=== PATIENT | female | born 1950 | race Caucasian/White ===

== ENCOUNTER 2017-09-23 08:00 | Outpatient (CLI) | payer MEDICARE, OTHER | END 2017-09-23 08:01 | disposition home or self-care (01) | LOC: BICMAMMO 08:00 | PROVIDERS: ATTEND Specialist | DX: Z13.820 Encounter for screening for osteoporosis (principal); M85.851 Other specified disorders of bone density and structure, right thigh; M85.852 Other specified disorders of bone density and structure, left thigh | CPT/HCPCS: 77080 ==

== ENCOUNTER 2017-09-23 15:20 | Outpatient (CLI) | payer MEDICARE, OTHER | END 2017-09-23 15:21 | disposition home or self-care (01) | LOC: BICMAMMO 15:20 | PROVIDERS: ATTEND Specialist | DX: Z12.31 Encounter for screening mammogram for malignant neoplasm of breast (principal); R92.1 Mammographic calcification found on diagnostic imaging of breast | CPT/HCPCS: 77063; G0202; 77067 ==

== ENCOUNTER 2018-06-02 10:00 | Inpatient (IN) | payer MEDICARE, OTHER ==
[2018-06-02 10:08] VITALS: BMI 30.7
[2018-06-04] MEDS ORDERED: Sodium Chloride 0.9% 100 ML ONE (05:56)
[2018-06-04] MEDS ORDERED: CEFAZOLIN/Water 2 GM/20 ML SYRINGE ONE (05:56)
[2018-06-04] MEDS ORDERED: Vancomycin HCl 1.5 GM in Sodium Chloride 0.9% 250 ML 300 ML IVPB SCH ×3 (06:00→18:00)
[2018-06-04] MEDS ORDERED: Fentanyl 100 MCG/2 ML VIAL ONE ×2 (06:39→11:23)
[2018-06-04] MEDS ORDERED: Midazolam HCl 2 mg/2 ml Vial ONE (06:39)
[2018-06-04] MEDS ORDERED: Levofloxacin 500 mg/D5W 100 ml Premix Bag ONE (07:01)
[2018-06-04] MEDS ORDERED: Promethazine HCl 25 MG/ML VIAL IM PRN (07:05)
[2018-06-04] MEDS ORDERED: Ropivacaine HCl/PF 1,100 MG in Sodium Chloride 0.9% 440 ML NERVE BLCK SCH (07:05)
[2018-06-04] MEDS ORDERED: traMADol HCl 50 MG TAB PO PRN ×4 (07:05→12:44)
[2018-06-04] MEDS ORDERED: Zolpidem Tartrate 5 MG TAB PO PRN (07:05)
[2018-06-04] MEDS ORDERED: Ondansetron HCl/PF 4 MG/2 ML Vial IVP PRN (07:05)
[2018-06-04] MEDS ORDERED: HYDROcodone/Acetaminophen 10/325 mg Tablet PO PRN ×3 (07:05→12:44)
[2018-06-04] MEDS ORDERED: Fentanyl 100 MCG/2 ML VIAL IV PRN (07:06)
--- NOTE | 2018-06-04 07:23 | HP ---
HISTORY OF PRESENT ILLNESS: Ms. Serrato is a 67-year-old female, soon to be 68, who presents with lef t shoulder pain described as 10/10. She has elevation of 40 degrees, external rotation of 10. The p atient has had a longstanding shoulder pain that has gone on for several years. She has undergone th erapy and injections and not desired surgery. She had an injury about 3 months ago which kind of com pleted the tear and she lost function of her left arm. She has a high riding humerus. The patient's desired surgical intervention. I discussed with her the risks and benefits. PAST MEDICAL HISTORY: UTI, restless leg, high cholesterol, chronic back depression. PAST SURGICAL HISTORY: Appendectomy, tubal ligation, hysterectomy, gallbladder, hemorrhoidectomy, ba ck surgery x5, laminectomy. MEDICATIONS: Atorvastatin, fluoxetine, pramipexole, Bihel, tizanidine, zolpidem. ALLERGIES: ASPIRIN. SOCIAL HISTORY: The patient is . Denies tobacco, occasional alcohol and denies drug use. Sh e has smoked in the past, quit in 1985. PHYSICAL EXAMINATION: GENERAL: Oriented female in no acute distress. HEENT: Normocephalic, atraumatic. Extraocular muscles intact. HEART: Regular rate. ABDOMEN: Soft, nontender, nondistended. EXTREMITIES: The patient's left upper extremity shows elevation of 40, external rotation of 10, ext remity strength 3/5, subscapularis 4/5 supraspinatus 3/5. She has a positive Oliva and Meggan's, haylee rovascularly intact, 2+ radial pulse. No wounds. A previous MRI showed a full thickness retracted tear of the infraspinatus to the supraspinatus with atrophy and also tearing of the strain of the teres with a glenohumeral joint effusion. IMPRESSION: Rotator cuff tear with atrophy irreparable. PLAN: The patient will be taken to the OR for a left reverse shoulder arthroplasty, biceps tenodesis . I discussed with the patient both the risks and benefits of surgery. I discussed with her also th e potential for a superior capsular reconstruction as an adjunct procedure and she desired definitive reverse. I discussed risks and benefits of reverse to include the longevity of implant, failure, lo ng-term failure, need for further surgeries, damage to vital structures or tendons, loss of life or l imb. The patient and family understand the risks and benefits and elected to proceed. The patient w ill receive vancomycin and Ancef and TXA.
[2018-06-04] MEDS ORDERED: Ropivacaine 0.5% HCl/PF (150 MG/30 ML VIAL) ONE ×2 (07:24→10:46)
[2018-06-04] MEDS ORDERED: Tranexamic Acid 1,000 MG in Sodium Chloride 0.9% 100 ML IVPB SCH (09:30)
--- NOTE | 2018-06-04 09:41 | OP ---
DATE OF PROCEDURE: 06/04/2018 PREOPERATIVE DIAGNOSIS: Left supraspinatus, infraspinatus full thickness tear of the traction irrepa rable rotator cuff tear. POSTOPERATIVE DIAGNOSIS: Left supraspinatus, infraspinatus full thickness tear of the traction irrep arable rotator cuff tear with biceps tendonopathy. PROCEDURE PERFORMED: 1. Left reverse total shoulder arthroplasty. 2. Biceps tenodesis. STAFF: Javier Maxwell M.D. WINDSCREEN FITTER: Aron Wu PA-C. ANESTHESIA: Vo. The patient received a general endotracheal intubation with interscalene block. ESTIMATED BLOOD LOSS: 150 mL. TOURNIQUET TIME: None. IMPLANTS: A Tornier 25 mm baseplate, a 32 superior, a 23 inferior, 32 anterior and 18 posterior scre ws, 36 mm centered sphere, 5B Flex stem, 0 offset tray, 6 mm poly. COMPLICATIONS: None. HISTORY OF PRESENT ILLNESS: Ms. Serrato is a 67-year-old female who presented with left shoulder pain for a full thickness rotator cuff tear. She had MRI evidence of supraspinatus infraspinatus atrophy with retraction of the glenoid. I did not feel that the patient would be a good candidate for a rot ator cuff repair. I discussed with her superior capsular reconstruction. The patient elected for th e reverse shoulder arthroplasty and biceps tenodesis. She understood the risks and benefits of the p rocedure to include pain, scar, bleeding, infection, damage to vital structures, decreased range of m otion or strength, continued pain, need for hardware revision or removal, loss of life or limb. The patient understood the risks and benefits and elected to proceed. PROCEDURE NOTE: Timeout was performed designating the patient's left upper extremity as the operativ e site based on site, consents and markings. After completion of timeout, the patient's left upper e xtremity was prepped and draped in sterile fashion. The patient had been placed in a beach chair pos ition. We made an incision in the deltopectoral down through skin through fat. I developed a plane which was right over the conjoint, looked in the fat, but I could not find a good vein. After develo ping the interval, I came down, found the patient's subscapularis, performed a subscapularis release. I found with the patient's biceps. After doing and inferior release and exposing the head, we disl ocated the head out, noticing that there was no supraspinatus infraspinatus left. We cut the biceps and that helped us with our dislocation. We cut the humeral head based articular cartilage. After this, we broached up to a size 5B stem. We placed it. I did not like the distance, so I cut 2 more mm off the entire head and placed a 4B, placed our trough. We then began our glenoid at 360 degree r elease soft tissue and bluntly dissected inferiorly, took down the capsule to ensure that we had teresita norman the biceps to expose the whole glenoid. After being happy with exposure of the glenoid we placed our [address] We drilled our center hole. We then reamed, medialized maybe a millimete r or 2 more than I would like, but I liked the overall position of our center position. We then hemant gary up peripherally and placed our baseplate, placed our anterior and posterior screws 32 and 18 resp ectively, placed a superior 32 and inferior 23. Had good overall firm fixation of this glenoid after completion of this. We then placed our standard baseplate, centered glenosphere, a [address], had good firm fixation. We moved back to the humerus, we placed finally a 5B, reduced it, had the low offset tray in about the 6 o'clock position to help with more lateralization, it was slightl y posterior on the humerus as far as translation in comparison to normal, but overall I liked the red uction. She was easily reduced and dislocated but her conjoint was firm. She had good range of tesha on. She had no signs of dislocation. I therefore elected to finalize those implants, removed all th e implants, filled 2 holes for #5 Ethibond, passed this down through the loop of the #5 Ethibond. We then impacted our implant and reduced it. We then used a #5 to do a W stitch, extended W stitch to close the subscapularis through the subscapularis. The remnant tissue posteriorly to tenodese the b iceps with #2 Vicryl with 3 [id number] stitches. We then washed. We closed the deltopectoral i nterval subcu and skin with 0, 2-0 and wilfredo. The patient will be admitted for pain control. She will be followed in house. The patient will be discharged potentially tomorrow if her pain is contro lled.
[2018-06-04] MEDS ORDERED: Ropivacaine 0.2% HCl/PF (40 MG/20 ML VIAL) ONE (10:46)
--- NOTE | 2018-06-04 10:53 | RAD ---
2 VIEWS LEFT SHOULDER: Date: 06/04/18 INDICATION: Left shoulder replacement. COMPARISON: None. FINDINGS: There is a reverse left total shoulder replacement demonstrated. The prosthesis projects in the expec joss position. Surgical wilfredo overlie the anterolateral aspect of the left shoulder joint. Visualize d left lung is clear. No acute fracture is evident. IMPRESSION: Left total shoulder replacement without radiographic evidence of complication. POS: [facility]
[2018-06-04] MEDS ORDERED: PHENYLEPHRINE-NS 100 MCG/ML 10 ML SYRINGE ONE (10:56)
[2018-06-04] MEDS ORDERED: Ondansetron HCl/PF 4 MG/2 ML Vial ONE (10:56)
[2018-06-04] MEDS ORDERED: PROPOFOL 200 MG/20 ML VIAL ONE (10:56)
[2018-06-04] MEDS ORDERED: Dexamethasone 20 MG/5 ML VIAL ONE (10:56)
[2018-06-04] MEDS ORDERED: Ketorolac Tromethamine 30 MG/ML VIAL ONE (10:56)
[2018-06-04] MEDS ORDERED: Methocarbamol 1 GM/10 ML VIAL SLOW IVP PRN (12:44)
[2018-06-04] MEDS ORDERED: Bisacodyl 10 MG SUPP PR PRN (12:44)
[2018-06-04] MEDS ORDERED: Methocarbamol 500 MG TAB PO PRN (12:44)
[2018-06-04] MEDS ORDERED: Ondansetron ODT 4 MG TAB PO PRN (12:44)
[2018-06-04] MEDS ORDERED: diphenhydrAMINE 50 MG CAP PO PRN (12:44)
[2018-06-04] MEDS ORDERED: Acetaminophen 325 MG TAB PO PRN (12:44)
[2018-06-04] MEDS: HYDROcodone/Acetaminophen 10/325 mg Tablet PO PRN ×2 (14:34→21:35)
[2018-06-04] MEDS: CEFAZOLIN/Water 2 GM/20 ML SYRINGE SLOW IVP SCH ×2 (14:35→21:37)
[2018-06-04] MEDS: Dextrose 5 %-0.45 % NaCl 1,000 ML IV SCH (15:16)
[2018-06-04] MEDS: Ketorolac Tromethamine 30 MG/ML VIAL IVP SCH ×2 (18:15→23:45)
[2018-06-04] MEDS: Famotidine 20 MG TAB PO SCH (21:37)
[2018-06-04] MEDS ORDERED: tiZANidine HCl 4 MG TAB PO SCH (23:00)
[2018-06-04] MEDS ORDERED: Zolpidem Tartrate 5 MG TAB PO SCH (23:00)
[2018-06-04] MEDS ORDERED: Atorvastatin Calcium 40 MG TAB PO SCH (23:00)
[2018-06-04] MEDS ORDERED: FLUoxetine HCl 20 MG CAP PO SCH (23:00)
[2018-06-04] MEDS ORDERED: Pramipexole Di-HCl 1 MG TAB PO SCH (23:00)
[2018-06-05] MEDS: Dextrose 5 %-0.45 % NaCl 1,000 ML IV SCH ×2 (04:59→20:54)
[2018-06-05] MEDS: Ketorolac Tromethamine 30 MG/ML VIAL IVP SCH ×3 (06:43→17:57)
[2018-06-05] MEDS: Famotidine 20 MG TAB PO SCH ×2 (10:47→20:54)
[2018-06-05] MEDS: HYDROcodone/Acetaminophen 10/325 mg Tablet PO PRN ×2 (13:08→20:56)
[2018-06-05] MEDS ORDERED: Ropivacaine 0.5% HCl/PF (150 MG/30 ML VIAL) ONE (15:41)
[2018-06-05] MEDS ORDERED: Pramipexole Di-HCl 1 MG TAB PO SCH (21:00)
[2018-06-05] MEDS ORDERED: FLUoxetine HCl 20 MG CAP PO SCH (21:00)
[2018-06-05] MEDS ORDERED: Atorvastatin Calcium 40 MG TAB PO SCH (21:00)
[2018-06-05] MEDS ORDERED: Zolpidem Tartrate 5 MG TAB PO SCH (21:00)
[2018-06-05] MEDS ORDERED: tiZANidine HCl 4 MG TAB PO SCH (21:00)
[2018-06-06] MEDS: Famotidine 20 MG TAB PO SCH (09:26)
[2018-06-06] MEDS: HYDROcodone/Acetaminophen 10/325 mg Tablet PO PRN (09:26)
[2018-06-06] MEDS: Dextrose 5 %-0.45 % NaCl 1,000 ML IV SCH (12:12)
[2018-06-06 12:18] VITALS: BP 118/67; TEMP 98.6
== END 2018-06-06 15:04 | disposition home or self-care (01) | DRG 483 ==
LOC: SURG A 06-04 05:42 → SJJU 06-04 12:46
PROVIDERS: ADMIT Orthopaedic Surgery; ATTEND Orthopaedic Surgery
PROC: 0RRK00Z Replacement of Left Shoulder Joint with Reverse Ball and Socket Synthetic Substitute, Open Approach (ICD-10-PCS; principal; 2018-06-04)
PROC: 0LS40ZZ Reposition Left Upper Arm Tendon, Open Approach (ICD-10-PCS; 2018-06-04)
DX: M75.102 Unspecified rotator cuff tear or rupture of left shoulder, not specified as traumatic (principal); E78.00 Pure hypercholesterolemia, unspecified; M19.012 Primary osteoarthritis, left shoulder; G25.81 Restless legs syndrome; Z87.891 Personal history of nicotine dependence; Z01.812 Encounter for preprocedural laboratory examination
CPT/HCPCS: 80048; 81001; 85027; 86850; 86900; 86901; 87081; 93005; 93010; G8978-GP-CK; G8979-GP-CK; G8980-GP-CK; G8987-GO-CJ; G8988-GO-CJ; G8989-GO-CJ; J1100; J1885; J1956; J2250; J2405; J2704; J2795; J3010; J3370; J7050

== ENCOUNTER 2018-06-10 12:21 | Emergency (ER) | payer MEDICARE, OTHER ==
[2018-06-10 13:10] LABS: ALT (SGPT) 13 U/L (8-55); AST (SGOT) 17 U/L (5-34); Alkaline Phosphatase 61 U/L (40-150); Anion Gap 14 mmol/L (10-20); BUN (Urea Nitrogen) 20 mg/dL (9.8-20.1); Bilirubin, Total 0.4 mg/dL (0.2-1.2); CK (CPK) 159 U/L (29-168); Calc. Creatinine Clearance 0 mL/min (70-130); Calcium 9.5 mg/dL (7.8-10.44); Carbon Dioxide 27 mmol/L (23-31); Chloride 103 mmol/L (98-107); Estimated GFR-MDRD 83; Globulin 2.6 g/dL (2.4-3.5); Glucose 94 mg/dL (80-115); Potassium 4.3 mmol/L (3.5-5.1); Protein, Total 6.6 g/dL (6.0-8.3); Sodium 140 mmol/L (136-145)
[2018-06-10 13:15] LABS: CKMB 1.1 ng/mL (0-6.6); Troponin I Less than 0.010 ng/mL (< 0.028)
[2018-06-10 13:17] LABS: #Basophils 0.1 thou/uL (0.0-0.2); #Eosinphils 0.8 thou/uL (0.0-0.7); #Lymphocytes 2.4 thou/uL (1.20-3.40); #Monocytes 0.7 thou/uL (0.11-0.59); #Neutrophils 3.4 thou/uL (1.40-6.50); %Basophils 0.9 % (0.0-1.0); %Eosinophils 11.1 % (0.0-10.0); %Monocytes 8.9 % (0.0-10.0); Hemoglobin 11.8 g/dL (12.0-16.0); Mean Corpuscular HGB CONC 33.5 g/dL (32.0-36.0); Mean Corpuscular Hemoglobin 31.2 pg (27.0-31.0); Mean Corpuscular Volume 93.1 fL (78.0-98.0); Mean Platelet Volume 6.3 fL (7.4-10.4); Platelet Count 357 thou/uL (130-400); RBC Distribution Width 11.4 % (11.5-14.5); Red Blood Cell (RBC) Count 3.77 mill/uL (4.20-5.40); White Blood Cell (WBC) Count 7.4 thou/uL (4.8-10.8)
--- NOTE | 2018-06-10 13:22 | RAD ---
PORTABLE CHEST ONE VIEW: Date: 06-10-18 Time: 12:03 p.m. History: Dyspnea, recent left shoulder replacement surgery. FINDINGS: There is elevation of the left hemidiaphragm with adjacent subsegmental atelectatic change. The heart size is normal. The aorta is tortuous. No lobar consolidation, pneumothoraces, or large effusions ar e seen. A small left pleural effusion cannot be excluded. There are post op changes of right rotator cuff surgery. POS: [facility]
--- NOTE | 2018-06-10 14:37 | CT ---
CT ANGIOGRAM THORAX WITH IV CONTRAST AND 3D RECONSTRUCTIONS: 06/10/2018 HISTORY: Dyspnea and bilateral lower extremity swelling. Shortness of breath for three days. COMPARISON: None available. FINDINGS: Bilateral breast prostheses are present. There is artifact through the chest secondary to a left glenohumeral prosthesis, but no definite fill ing defects are seen in the pulmonary arteries to suggest a pulmonary embolus. The thoracic aorta is normal in caliber, without evidence of an aortic dissection. There is mild elevation of the left hemidiaphragm, with consolidation in the left lung base, probably attributable to atelectasis, although pneumonia cannot be entirely excluded. The lungs are otherwis e clear. There is a small Bochdalek hernia present at the posteromedial right lung base. Post cholecystectomy changes are noted. There is right convex scoliosis of the thoracic spine, with prominent degenerative changes in the vis ualized upper lumbar spine. Post surgical changes are also seen involving the upper lumbar spine. Post cholecystectomy changes are noted. There are gas densities seen just anterior to the left pectoralis major muscle. The patient does hav e skin clips overlying the left shoulder, and findings are likely related to recent post surgical gabby nges. There is no fluid collection seen. IMPRESSION: 1. No CT evidence of a pulmonary embolus. 2. Consolidation, left lung base, which may be attributable to volume loss, as there is prominent el evation of the left hemidiaphragm; however, pneumonia cannot be entirely excluded. Clinical correlat ion is recommended. 3. Gas densities superior to the pectoralis major muscle and beneath the area of skin clips overlyin g the left shoulder related to recent post surgical changes. There is evidence of a left glenohumera l prosthesis. 4. Post cholecystectomy changes. POS: [facility]
--- NOTE | 2018-06-10 17:20 | ULT ---
RIGHT LOWER EXTREMITY VENOUS DOPPLER WITH SPECTRAL ANALYSIS AND COLOR FLOW EVALUATION 06/10/18 HISTORY: Bilateral lower extremity edema. FINDINGS: Rangel scale, color flow, doppler evaluation and spectral analysis of the bilateral lower extremity renee ous structures is performed with 2D imaging. The bilateral lower extremity common femoral, superficia l femoral, popliteal, posterior tibial, most proximal visualized greater saphenous and profunda femor al veins are imaged. There is normal lumen compressibility, flow and augmentation in the visualized deep venous structures of the bilateral lower extremities. IMPRESSION: No evidence of a DVT involving the visualized deep venous structures bilateral lower extremities. POS: [facility]
== END 2018-06-10 17:09 | disposition home or self-care (01) ==
LOC: ERS 12:21
DX: R06.00 Dyspnea, unspecified (principal); R60.0 Localized edema; E78.5 Hyperlipidemia, unspecified; Z79.899 Other long term (current) drug therapy
CPT/HCPCS: 36415; 71045; 71275; 80053; 82553; 83880; 84484; 85025; 93005; 93970; 94760

== ENCOUNTER 2019-04-23 09:35 | Outpatient (CLI) | payer MEDICARE, OTHER ==
[2019-04-23 10:11] LABS: Estimated GFR-MDRD - POC Greater than 90
[2019-04-23] MEDS ORDERED: Gadobenate Dimeglumine 529 MG/1 ML (20ML VIAL) ONE (11:50)
--- NOTE | 2019-04-23 12:45 | MRI ---
MRI LUMBAR SPINE WITH AND WITHOUT CONTRAST: HISTORY: Status post lumbar spine laminectomy syndrome. Back pain radiating down both legs and hips. Occasio nal right groin and leg pain. COMPARISON: None. TECHNIQUE: Lumbar spine MRI is performed with and without intravenous Gadolinium administration. Multisequentia l, multiplanar imaging is performed. FINDINGS: There is appropriate T1 marrow signal intensity of the lumbar vertebrae. Lumbar spine vertebral body height is maintained. There is no fracture. Approximately 1 cm of anterolisthesis of L2 upon L3. Bilateral transpedicular screws at L2, L3, L5. Associated metallic susceptibility artifact. Laminec obed defect at L2-L3, L4-L5. Extensive posterior bone graft material is noted. Appropriate signal intensity of the paraspinal muscles and solid organs. Conus medullaris terminates at the upper aspect of L1. Postcontrast images do not demonstrate any abnormal enhancement with regards to the vertebral bodies. No abnormal enhancement within the thecal sac including the cauda equina and conus medullaris. T12-L1: Mild ligamentum flavum thickening and facet hypertrophy. No significant central canal steno sis. Moderate bilateral neural foraminal narrowing. L1-L2: Desiccation with moderate loss of disk space height. Broad-based disk bulge, ligamentum flav um thickening, and facet hypertrophy result in moderate to severe central canal stenosis. Severe rig ht and moderate to severe left neural foraminal narrowing. L2-L3: Posterior decompression changes. Mild loss of disk space height. No high-grade central vilma l stenosis. Moderate to severe bilateral neural foraminal narrowing. L3-L4: Adequate disk space height. No significant posterior disk abnormality. No significant centr al canal stenosis. Bilaterally, neural foramina are patent. L4-L5: There appears to be a disk prosthesis. The posterior margin of the disk prosthesis appears t o be posterior to the margin of the vertebral body suggesting posterior protrusion. There is mass ef fect upon the thecal sac with mild central canal stenosis. Disk prosthesis abuts the traversing left L5 nerve root without complete obscuration. Laminectomy defect is identified. Mild to moderate rig ht and mild left neural foraminal narrowing. L5-S1: Adequate disk hydration. No significant central canal stenosis or neural foraminal narrowing . IMPRESSION: 1. Moderate to severe central canal stenosis at L1-L2. 2. Grade I anterolisthesis of L2 upon L3. 3. Disk prosthesis at L4-L5. The posterior margin of the disk prosthesis is beyond the vertebral sydnee dy suggesting posterior displacement/protrusion. 4. Varying degrees of foraminal stenosis as detailed above. POS: [facility]
== END 2019-04-23 09:36 | disposition home or self-care (01) ==
LOC: BICMRI 09:35
PROVIDERS: ATTEND Family Medicine
DX: M48.062 Spinal stenosis, lumbar region with neurogenic claudication (principal); M54.16 Radiculopathy, lumbar region; M96.1 Postlaminectomy syndrome, not elsewhere classified; M43.16 Spondylolisthesis, lumbar region
CPT/HCPCS: 72158; 82565; A9577

== ENCOUNTER 2019-06-15 14:33 | Outpatient (CLI) | payer MEDICARE, OTHER ==
--- NOTE | 2019-06-15 15:42 | CT ---
CT of the lumbar spine without contrast: 06/15/2019 COMPARISON: None HISTORY: Fall, trauma, pain TECHNIQUE: Axial CT imaging obtained at 3 mm intervals from the lower thoracic spine through the lowe r sacrum with coronal and sagittal reformatted imaging FINDINGS: Evaluation for central canal and/or neural foraminal stenosis is limited on routine CT exam ination. There is anterolisthesis of L2 on L3 measuring 1.1 cm. There is a mild degree of levoscoliosis at the thoracolumbar junction. There are bilateral L2 and L3 pedicle screws with vertically oriented interlocking rods. Bilateral pe dicle screws are present at L5 as well. Intervertebral disc device noted at L4-5. There is bone graft material which appears mature, in the region of the bilateral facet joints at L2-3, L3-4, and L 4-5. T12-L1: There is disc space narrowing and degenerative endplate change. There is no osseous cause of significant central canal stenosis. Probable at least mild bilateral neural foraminal stenosis L1-2: There is degenerative endplate change and disc space narrowing as well as vacuum disc formation . There is prominent right lateral osteophyte formation and there is osteophyte formation involving bilateral facet joints. There is a disc osteophyte complex. At least moderate central canal stenosis and moderate/severe bilateral neural foraminal stenosis suspected, right greater than left. L2-3: Bilateral facet hypertrophy. Probable moderate bilateral neural foraminal stenosis. Disc space narrowing and vacuum disc formation with probable moderate central canal stenosis. L3-4: No osseous cause of significant central canal or neural foraminal stenosis L4-5: Bilateral facet hypertrophy. Posterior osteophyte. Probable mild bilateral neural foraminal eric nosis and mild central canal stenosis L5-S1: Bilateral facet hypertrophy. Probable mild bilateral neural foraminal stenosis. No osseous cau se of significant central canal stenosis. There are bilateral laminectomy changes present at the L4 level. There is increased density within the posterior aspect of the iliac bone on the right suggesting bony graft reservoir site with associated packing. Clinical correlation is required. Benign hemangioma is suspected within the sacrum, on the left. No acute fracture or evidence of dislocation is appreciated. The extraspinal structures demonstrate cholecystectomy clips. No acute retroperitoneal abnormality is seen. There is scattered atherosclerotic calcification of the abdominal aorta and its branches. IMPRESSION: Extensive postoperative and degenerative change of the lumbar spine, incompletely assesse d on this exam. The most significant findings are felt to be at L1-2 and L2-3 with regard to central canal and neural foraminal stenosis. This could be best assessed via follow-up CT myelogram o f the lumbar spine as clinically warranted Transcribed Date/Time: 06/15/2019 4:58 PM
--- NOTE | 2019-06-15 15:59 | RAD ---
RIGHT HIP 2 VIEWS: HISTORY: Right hip pain. FINDINGS/IMPRESSION: Mild degenerative changes are present. No fracture or dislocation is identified. POS: [facility]
--- NOTE | 2019-06-15 15:59 | RAD ---
LEFT HIP 2 VIEWS: HISTORY: Left hip pain. FINDINGS/IMPRESSION: There are mild degenerative changes. No acute fracture, dislocation, or bony destruction is identifi ed. POS: [facility]
== END 2019-06-15 14:34 | disposition home or self-care (01) ==
LOC: TBSIIMAG 14:33
PROVIDERS: ATTEND Neurological Surgery
DX: M47.26 Other spondylosis with radiculopathy, lumbar region (principal); M25.552 Pain in left hip; M48.061 Spinal stenosis, lumbar region without neurogenic claudication; M16.12 Unilateral primary osteoarthritis, left hip; Z98.890 Other specified postprocedural states
CPT/HCPCS: 72131

== ENCOUNTER 2019-07-14 06:19 | Day surgery (SDC) | payer MEDICARE, OTHER ==
[2019-07-07 12:05] VITALS: BMI 31.6
[2019-07-14] MEDS ORDERED: Bupivacaine HCl 0.5%/Epinephrine 1:200,000/PF 30 ml Vial ONE (06:39)
[2019-07-14] MEDS ORDERED: Thrombin 5000 UNITS/5 ML VIAL ONE (06:39)
[2019-07-14] MEDS ORDERED: Fentanyl 100 MCG/2 ML VIAL ONE (07:51)
[2019-07-14] MEDS ORDERED: Ketamine 50 MG/ML (10ML VIAL) ONE (07:52)
[2019-07-14] MEDS ORDERED: Scopolamine 1.5 mg/72 hour Patch ONE (09:43)
[2019-07-14] MEDS ORDERED: Meperidine HCl/PF 25 MG/ML VIAL ONE (09:56)
--- NOTE | 2019-07-14 12:30 | OP ---
DATE OF PROCEDURE: 07/14/2019 ASSEMBLER LAY UPS: Souleymane Molina PA-C INDICATION: Pain. DIAGNOSES: Claudication, lumbar stenosis L1-L2. PROCEDURE PERFORMED: Reoperation L1-L2 lumbar decompression. ANESTHESIA: General. DESCRIPTION OF PROCEDURE: The patient was brought into the operating room and placed under general anesthesia. She was flipped from the supine to prone position on the operating room table. A linear incision was planned at the L1-L2 segment, which encompassed prior incision. After prepping and draping and after an appropriate operative pause, the incision was created. The underlying soft tissues were swept lateral of midline. After identifying the appropriate level with C-arm fluoroscopy, high-speed cutting drill bit as well as 1, 2, and 3 mm Kerrisons were used to perform a laminectomy at the L1-L2 segment until the segment was well decompressed. The wound was then copiously irrigated. Hemostasis was maintained throughout. The wound was then closed in anatomic layers and a pressure dressing was applied. There were no known procedural complications. Job ID: [id number]
== END 2019-07-14 12:40 | disposition home or self-care (01) ==
LOC: SDC 06:19
PROVIDERS: ATTEND Neurological Surgery
PROC: 01NB0ZZ Release Lumbar Nerve, Open Approach (ICD-10-PCS; principal; 2019-07-14)
DX: M48.062 Spinal stenosis, lumbar region with neurogenic claudication (principal); M54.16 Radiculopathy, lumbar region; G25.81 Restless legs syndrome; F32.9 Major depressive disorder, single episode, unspecified; E78.00 Pure hypercholesterolemia, unspecified; Z88.2 Allergy status to sulfonamides; Z79.899 Other long term (current) drug therapy; Z88.6 Allergy status to analgesic agent
CPT/HCPCS: 76000; J0131; J0670; J0690; J2175; J3010

== ENCOUNTER 2019-10-26 12:27 | Outpatient (CLI) | payer MEDICARE, OTHER ==
--- NOTE | 2019-10-26 13:07 | RAD ---
CHEST 2 VIEWS: Date: 10/26/2019 HISTORY: Dyspnea. COMPARISON: 06/10/18. FINDINGS: Stable linear parenchymal changes in the left mid lung zone with improvement in the previously noted pleural and parenchymal opacity changes in the left costophrenic angle. Stable dextroscoliosis. No co nfluent pneumonia, overt edema, or pleural effusion. IMPRESSION: Stable chronic appearing lung changes in the left base. No significant new process. Atherosclerosis o f aorta. Thoracic spine levoscoliosis. POS: [facility]
== END 2019-10-26 12:28 | disposition home or self-care (01) ==
LOC: RAD 12:27
PROVIDERS: ATTEND Internal Medicine
DX: R06.00 Dyspnea, unspecified (principal); M41.9 Scoliosis, unspecified
CPT/HCPCS: 71046

== ENCOUNTER 2019-12-13 14:37 | Outpatient (CLI) | payer MEDICARE, OTHER ==
--- NOTE | 2019-12-13 15:52 | MRI ---
MR of the right shoulder without contrast INDICATION: Right shoulder pain. TECHNIQUE: Sagittal T1, axial and coronal PD fat sat, sagittal and coronal T2 fat sat images were obt ained of the right shoulder. COMPARISON: None. FINDINGS: Motion artifact limits image detail. Rotator cuff: There is postsurgical change of a prior rotator cuff repair. There is elevation the hum eral head in relationship to the acromion. There is a full-thickness tear of the supraspinatus and anterior mid infraspinatus with retraction of the tendon to the level of the glenohumeral joint. Ther e is partial-thickness high-grade articular surface extension into the posterior infraspinatus. There is a high-grade partial thickness articular surface tear involving the cranial mid subscapulari s with prominent tendinosis. There is moderate to prominent atrophy of the supraspinatus and infraspinatus. Glenohumeral joint: There is moderate glenohumeral osteoarthrosis. There is degenerative intrasubstan ce signal of the glenoid labrum. Glenoid labrum: There is degenerative intrasubstance signal in glenoid labrum. There is degenerative fraying of the superior glenoid labrum. Biceps tendon and biceps anchor: There is complete disruption of the intra-articular long head of the biceps tendon with distal retraction to the level of the distal bicipital groove. Acromion clavicular joint: There is moderate to severe AC joint osteoarthrosis. Subacromial subdeltoid space: There is moderate fluid in the subacromial subdeltoid bursa. Axillary region: No lymphadenopathy. Surrounding shoulder musculature: Normal. No evidence of atrophy or strain. IMPRESSION: 1. Full-thickness rotator cuff tear of the supraspinatus and infraspinatus with retraction the tendon s to the level of the glenohumeral joint. There is moderate to prominent atrophy of the supraspinous infraspinatus. There is partial-thickness high-grade articular surface tear extension in to the posterior infraspinatus from the full-thickness infraspinatus tear. 2. High-grade partial thickness articular surface tear of the cranial mid subscapularis at the footpr int. 3. Moderate glenohumeral osteoarthrosis 4. Complete disruption of the long head of the biceps tendon with distal retraction. 5. Moderate to severe AC joint osteoarthrosis.
== END 2019-12-13 14:38 | disposition home or self-care (01) ==
LOC: SCSMRI 14:37
PROVIDERS: ATTEND Orthopaedic Surgery
DX: M75.101 Unspecified rotator cuff tear or rupture of right shoulder, not specified as traumatic (principal); M19.011 Primary osteoarthritis, right shoulder

== ENCOUNTER 2020-05-05 12:59 | Outpatient (CLI) | payer MEDICARE, OTHER ==
--- NOTE | 2020-05-05 13:56 | RAD ---
Exam: 3 views lumbar spine HISTORY: Lumbar radiculopathy. COMPARISON: None Correlation: Lumbar spine CT 06/15/2019 FINDINGS: Bilateral transpedicular screws at L2, L3 and L5 are redemonstrated. Extensive posterior sydnee ne graft material is identified. L4-L5 disc space prosthesis is noted. Disc prosthesis appears to be posterior to the disc space and m ay have migrated posteriorly. No fracture Spondylolisthesis: L2-L3: Neutral 5.9 mm of anterolisthesis; extension 4.9 mm of anterolisthesis; flexion 6.2 mm of retr olisthesis L3-L4: Neutral 2.3 mm of anterolisthesis; extension 3 mm of anterolisthesis; flexion 3.3 mm of gabbi listhesis L4-L5: Neutral 5.5 mm of anterolisthesis; extension 4.7 mm of anterolisthesis; flexion 5.0 mm retroli sthesis. IMPRESSION: 1. Postsurgical fusion changes as described above. 2. Spondylolisthesis as above.
--- NOTE | 2020-05-05 15:13 | MRI ---
Exam: MRI cervical spine without contrast HISTORY: Cervical radiculopathy. COMPARISON: None FINDINGS: Heterogeneous T1 and T2 marrow signal intensity involving endplates, compatible with type I and type II Modic changes at C3-C4, and C5-6 C6-C7. Remaining cervical vertebrae appropriate T1 marrow signal intensity. No fracture. No significant STIR hyperintensity to suggest ligamentous injury or vertebral body edema Visualized brain parenchyma, cervical medullary junction, cervical cord and the upper thoracic cord h ave a normal size and signal intensity C2-C3: Mild loss of disc space height. Broad-based disc bulge abuts the thecal sac. No significant ce ntral canal stenosis or significant neural foraminal narrowing C3-C4: Broad-based disc osteophyte complex abuts the thecal sac. Subarachnoid space is nearly effaced . Mild central canal stenosis. Moderate bilateral neural foraminal narrowing due to degenerative changes of the uncovertebral joints C4-C5: Desiccation with mild loss of disc space height. Broad-based disc osteophyte complex. Mild to moderate central canal stenosis. Moderate bilateral neural foraminal narrowing due to uncovertebral hypertrophy C5-C6: Desiccation with mild loss of disc space height. Broad-based discussed by complex abuts the th ecal sac. Subarachnoid space is nearly effaced. Mild to moderate central canal stenosis. Moderate right and mild left neural foraminal narrowing due to uncovertebral hypertrophy C6-C7: Minimal desiccation without significant loss of disc space height. Broad-based disc bulge abut s the thecal sac. Mild central canal stenosis. Mild bilateral neural foraminal narrowing due to uncovertebral hypertrophy C7-T1: Desiccation with mild loss of disc space height. No significant central canal stenosis. Severe right and mild left neural foraminal narrowing due to uncovertebral hypertrophy IMPRESSION: Multilevel degenerative changes of the cervical spine as detailed above. Transcribed Date/Time: 05/05/2020 3:46 PM
== END 2020-05-05 13:00 | disposition home or self-care (01) ==
LOC: TBSIIMAG 12:59
PROVIDERS: ATTEND Neurological Surgery
DX: M47.22 Other spondylosis with radiculopathy, cervical region (principal); M43.16 Spondylolisthesis, lumbar region; Z98.1 Arthrodesis status
CPT/HCPCS: 72100; 72141

== ENCOUNTER 2020-05-17 08:47 | Outpatient (CLI) | payer MEDICARE, OTHER ==
--- NOTE | 2020-05-17 10:54 | CT ---
CT lumbar spine noncontrast: 05/17/2020 HISTORY: 69-year-old female with lumbar radiculopathy. Low back pain. COMPARISON: 06/15/2019 FINDINGS: At least mild levoscoliosis centered at L1-2. Vertebral body heights demonstrate no major collapse. Bilateral pedicle screws with vertical interlocking rods, at L2, L3, and L5. Questionable loosening of hardware around right L2 pedicle screw. No definitive evidence of hardware loosening of the other screws. Successful ankylosis of bilateral posterior element onlay bone graft fusion from L2-3 through L5-S1. Tracks from previously removed bilateral pedicle screws at L4. T12-L1: No high-grade central spinal canal stenosis. At least mild right neural foraminal stenosis. M ild or moderate left neural foraminal stenosis. Moderate right facet DJD. Disc space maintained. Mild ligamentum flavum thickening. L1-2: Concavity of scoliosis results in severe asymmetrically right-sided degenerative disc changes, with severe right-sided sclerosis, large right lateral and far lateral osteophytosis, high-grade right sided facet DJD, severe right neural foraminal stenosis,. Severe right ligamentum flavum thicke kel. Moderate left facet DJD. Moderate left neural foraminal stenosis. Severe central spinal canal stenosis. Probably no major interval change. L2-3: Grade 1 or 2 anterolisthesis of L2 on L3. Moderate disc space narrowing. Bilateral neural patricia inal stenosis, moderate to severe, in the craniocaudal dimension, but not in the AP dimension. Moderate central spinal canal stenosis. No major interval change. L3-4: Disc space maintained. No central spinal canal stenosis. No significant neural foraminal stenos is. No interval change. L4-5: At least partial fusion across interbody graft material. Moderately large central chronic disc- osteophyte complex protrudes into the anterior aspect of spinal canal. However, this is accommodated by midline laminectomy defect, such that there is no high-grade central spinal canal eric nosis. No high-grade neural foraminal stenosis. New shallow, very mild broad depression of superior endplate of L4, without of indeterminate age. No other interval change. L5-S1: Dysplastic left L5 transverse process is completely fused with the left sacral ala. Spinal can al caliber is developmentally small at this level due to transitional level. Mild bilateral facet hypertrophy results in mild to moderate subarticular zone recess stenosis (lateral recess stenosis). No high-grade neural foraminal stenosis. No interval change. There is vacuum joint phenomenon and sclerosis at the bilateral SI joints. There is a moderately large region of hyperdense material within the right iliac bone. This could eit her represent polymethylmethacrylate cement or low-grade chondral lesion such as enchondroma. This has not changed. IMPRESSION: 1.) Moderate Lumbar spondylosis, with degenerative disc disease (most severe at L1-2, followed by L2- 3) and facet osteoarthrosis. 2) status post posterior lumbar fusion, with pedicle screws and successful ankylosis of bilateral pos terior element onlay bone grafts, from L2-3 through L5-S1 (pedicle screws have been removed from L4). 3) the posterior fusion stabilizes a prominent grade 1 or 2 spondylolisthesis at L2-3. 4) severe central spinal canal stenosis at L1-2. 5) severe right neural foraminal stenosis at L1-2. 6) lumbosacral transitional vertebra type IIIa. 7) high-grade bilateral sacroiliac joints osteoarthrosis. 8) the only interval change is a minimal compression fracture of the superior endplate of L4 of indet erminate age, which occurred sometime after the previous CT of 06/15/2019.
== END 2020-05-17 08:48 | disposition home or self-care (01) ==
LOC: TBSIIMAG 08:47
PROVIDERS: ATTEND Neurological Surgery
DX: M47.26 Other spondylosis with radiculopathy, lumbar region (principal); M51.16 Intervertebral disc disorders with radiculopathy, lumbar region; M48.061 Spinal stenosis, lumbar region without neurogenic claudication; M47.898 Other spondylosis, sacral and sacrococcygeal region; Q76.49 Other congenital malformations of spine, not associated with scoliosis; Z98.1 Arthrodesis status
CPT/HCPCS: 72131

== ENCOUNTER 2021-02-01 12:44 | Outpatient (CLI) | payer MEDICARE | END 2021-02-01 12:45 | disposition home or self-care (01) | LOC: TBSIIMAG 12:44 | PROVIDERS: ATTEND Neurological Surgery | DX: M47.26 Other spondylosis with radiculopathy, lumbar region (principal); K40.90 Unilateral inguinal hernia, without obstruction or gangrene, not specified as recurrent; M48.02 Spinal stenosis, cervical region; Z98.890 Other specified postprocedural states | CPT/HCPCS: 72148; 74177; 82565 ==

== ENCOUNTER 2021-02-27 09:40 | Outpatient (CLI) | payer MEDICARE ==
[2021-02-27 20:26] LABS: SARS-CoV-2 PCR by NAA Not Detected (NotDetected)
== END 2021-02-27 09:41 | disposition home or self-care (01) ==
LOC: LABBT 09:40
PROVIDERS: ATTEND Neurological Surgery
DX: Z01.812 Encounter for preprocedural laboratory examination (principal); M54.16 Radiculopathy, lumbar region; Z20.822 Contact with and (suspected) exposure to COVID-19
CPT/HCPCS: U0003; U0005; 87635

== ENCOUNTER 2021-03-02 06:33 | Day surgery (SDC) | payer MEDICARE ==
[2021-03-01 14:27] VITALS: BMI 33.5
[2021-03-02] MEDS ORDERED: EPINEPHrine 1 MG/ML AMP ONE (06:40)
[2021-03-02] MEDS ORDERED: Bupivacaine PF 0.5% 30 ML VIAL ONE (06:40)
[2021-03-02] MEDS ORDERED: Thrombin 5000 UNITS/5 ML VIAL ONE (06:40)
[2021-03-02] MEDS ORDERED: Morphine 4 MG/ML VIAL ONE (07:40)
[2021-03-02] MEDS ORDERED: Fentanyl 100 MCG/2 ML VIAL ONE (08:37)
[2021-03-02] MEDS ORDERED: Dexamethasone 20 MG/5 ML VIAL ONE (08:48)
[2021-03-02] MEDS ORDERED: Glycopyrrolate 0.2 MG/ML 5 ML SYRINGE ONE (08:48)
[2021-03-02] MEDS ORDERED: Ondansetron PF 4 MG/2 ML Vial ONE (08:48)
[2021-03-02] MEDS ORDERED: ePHEDrine Sulfate 50 MG/10 ML VIAL ONE (08:48)
[2021-03-02] MEDS ORDERED: Rocuronium Bromide 10 MG/ML (10ML VIAL) ONE (08:48)
[2021-03-02] MEDS ORDERED: Metoclopramide HCl 10 MG/2 ML VIAL ONE (08:48)
[2021-03-02] MEDS ORDERED: Ketorolac Tromethamine 30 MG/ML VIAL ONE (08:48)
[2021-03-02] MEDS ORDERED: PROPOFOL 200 MG/20 ML VIAL ONE (08:48)
[2021-03-02] MEDS ORDERED: Lidocaine 1% PF 5 ML VIAL ONE (08:48)
[2021-03-02] MEDS ORDERED: Famotidine/PF 20 mg/2ml Vial ONE (09:24)
[2021-03-02] MEDS ORDERED: SUGAMMADEX SODIUM 200 MG/2 ML VIAL ONE (10:30)
== END 2021-03-02 13:55 | disposition home or self-care (01) ==
LOC: SDC 06:33
PROVIDERS: ATTEND Neurological Surgery
PROC: 01NB0ZZ Release Lumbar Nerve, Open Approach (ICD-10-PCS; principal; 2021-03-02)
DX: M48.062 Spinal stenosis, lumbar region with neurogenic claudication (principal); M54.16 Radiculopathy, lumbar region; M19.90 Unspecified osteoarthritis, unspecified site; E78.00 Pure hypercholesterolemia, unspecified; G89.4 Chronic pain syndrome; K21.9 Gastro-esophageal reflux disease without esophagitis; Z79.82 Long term (current) use of aspirin; Z79.899 Other long term (current) drug therapy; Z88.2 Allergy status to sulfonamides; Z88.6 Allergy status to analgesic agent; Z88.8 Allergy status to other drugs, medicaments and biological substances
CPT/HCPCS: 76000; J0171; J0690; J1100; J1885; J2270; J2405; J2704; J2765; J3010; S0020; S0028

== ENCOUNTER 2021-04-13 11:21 | Outpatient (CLI) | payer MEDICARE ==
[2021-04-13 13:00] LABS: #Basophils 0.1 10x3/uL (0.0-0.2); #Eosinphils 0.3 10x3/uL (0.0-0.5); #Monocytes 0.5 10x3/uL (0.0-1.1); #Neutrophils 3.2 10x3/uL (1.5-8.4); %Basophils 0.8 % (0.0-2.0); %Eosinophils 5.5 % (0.0-6.0); %Lymphocytes 31.7 % (18.0-47.0); %Monocytes 8.4 % (0.0-10.0); %Neutrophils 53.4 % (40.0-75.0); Mean Corpuscular HGB CONC 32.6 g/dL (32.0-36.0); Mean Corpuscular Hemoglobin 29.4 pg (27.0-33.0); Mean Corpuscular Volume 90.3 fl (81.6-98.3); Mean Platelet Volume 9.6 fl (7.4-10.4); Platelet Count 315 10x3/uL (150-450); Red Blood Cell (RBC) Count 4.42 10x6/uL (3.90-5.03); White Blood Cell (WBC) Count 6.1 10x3/uL (3.5-10.5)
[2021-04-13 13:36] LABS: Anion Gap 13 mmol/L (10-20); BUN (Urea Nitrogen) 25 mg/dL (9.8-20.1); Calc. Creatinine Clearance 0 mL/min (70-130); Calcium 10.2 mg/dL (7.8-10.44); Carbon Dioxide 26 mmol/L (23-31); Chloride 106 mmol/L (98-107); Glucose 78 mg/dL (83-110); Potassium 4.3 mmol/L (3.5-5.1); Sodium 141 mmol/L (136-145)
== END 2021-04-13 11:22 | disposition home or self-care (01) ==
LOC: LABBT 11:21
PROVIDERS: ATTEND Surgery
DX: Z01.812 Encounter for preprocedural laboratory examination (principal); K43.2 Incisional hernia without obstruction or gangrene
CPT/HCPCS: 80048; 85025

== ENCOUNTER 2021-04-18 09:55 | Day surgery (SDC) | payer MEDICARE ==
[2021-04-17 12:20] VITALS: BMI 36.0
[2021-04-18] MEDS ORDERED: Lidocaine 1% w/Epinephrine 1:100K 20 ML VIAL ONE (10:25)
[2021-04-18] MEDS ORDERED: Bupivacaine 0.25% HCL 30 ML VIAL ONE (10:25)
[2021-04-18] MEDS ORDERED: Fentanyl 100 MCG/2 ML VIAL ONE ×3 (11:38→13:51)
[2021-04-18] MEDS ORDERED: Dexamethasone 20 MG/5 ML VIAL ONE (12:01)
[2021-04-18] MEDS ORDERED: PROPOFOL 200 MG/20 ML VIAL ONE (12:01)
[2021-04-18] MEDS ORDERED: Metoclopramide HCl 10 MG/2 ML VIAL ONE (12:01)
[2021-04-18] MEDS ORDERED: Rocuronium Bromide 10 MG/ML (10ML VIAL) ONE (12:01)
[2021-04-18] MEDS ORDERED: Ketorolac Tromethamine 30 MG/ML VIAL ONE (12:01)
[2021-04-18] MEDS ORDERED: diphenhydrAMINE 50 MG/ML VIAL ONE (12:01)
[2021-04-18] MEDS ORDERED: Glycopyrrolate 0.2 MG/ML 5 ML SYRINGE ONE (12:01)
[2021-04-18] MEDS ORDERED: Ondansetron PF 4 MG/2 ML Vial ONE (12:01)
[2021-04-18] MEDS ORDERED: Lidocaine 2% PF 5 ML VIAL ONE (12:01)
[2021-04-18] MEDS ORDERED: SUGAMMADEX SODIUM 200 MG/2 ML VIAL ONE (13:35)
== END 2021-04-18 15:25 | disposition home or self-care (01) ==
LOC: SDC 09:55
PROVIDERS: ATTEND Surgery
PROC: 0WUF4JZ Supplement Abdominal Wall with Synthetic Substitute, Percutaneous Endoscopic Approach (ICD-10-PCS; principal; 2021-04-18)
DX: K43.2 Incisional hernia without obstruction or gangrene (principal); E78.00 Pure hypercholesterolemia, unspecified; G89.29 Other chronic pain; M54.9 Dorsalgia, unspecified; Z79.899 Other long term (current) drug therapy; Z79.82 Long term (current) use of aspirin; Z87.891 Personal history of nicotine dependence; Z88.2 Allergy status to sulfonamides; Z88.6 Allergy status to analgesic agent; Z88.8 Allergy status to other drugs, medicaments and biological substances; Z91.040 Latex allergy status; Z91.048 Other nonmedicinal substance allergy status
CPT/HCPCS: C1781; J0690; J1100; J1200; J1885; J2001; J2405; J2704; J2765; J3010; S0020

== ENCOUNTER 2021-06-06 14:17 | Outpatient (CLI) | payer MEDICARE ==
[~2021-06-06 14:17] MED LIST: Magnevist 469MG/ML 20 ML VIAL ONE
== END 2021-06-06 14:18 | disposition home or self-care (01) ==
LOC: TBSIIMAG 14:17
PROVIDERS: ATTEND Neurological Surgery
DX: M54.16 Radiculopathy, lumbar region (principal); Z98.890 Other specified postprocedural states
CPT/HCPCS: 72158; A9579

== ENCOUNTER 2021-06-27 09:08 | Day surgery (SDC) | payer MEDICARE ==
[2021-06-27 10:03] VITALS: TEMP 98.4
[2021-06-27 12:14] VITALS: BP 157/77
[2021-06-27 14:30] LABS: BF Color Red; BF WBC/Nonhematics Ct.-Manual 195 /cu.mm; Clarity Cloudy/Turbid (Clear)
[2021-06-27 14:47] LABS: BF Segmented Neutrophils 69 %; Cell Count Non Hematic 8 %; Lymphocytes 23 %
== END 2021-06-27 11:45 | disposition home or self-care (01) ==
LOC: CT 09:08
PROVIDERS: ATTEND Neurological Surgery
PROC: 009Y3ZZ Drainage of Lumbar Spinal Cord, Percutaneous Approach (ICD-10-PCS; principal; 2021-06-27)
DX: M96.842 Postprocedural seroma of a musculoskeletal structure following a musculoskeletal system procedure (principal); M54.9 Dorsalgia, unspecified; Z79.82 Long term (current) use of aspirin; Z79.899 Other long term (current) drug therapy; Z88.2 Allergy status to sulfonamides; Z88.8 Allergy status to other drugs, medicaments and biological substances; Z91.048 Other nonmedicinal substance allergy status
CPT/HCPCS: 72131; 77012; 85060; 87070; 87205; 89051

== ENCOUNTER 2021-10-06 15:22 | Emergency (ER) | payer MEDICARE ==
[2021-10-06 15:58] LABS: #Eosinphils 0.1 thou/uL (0.0-0.7); #Lymphocytes 1.5 thou/uL (1.20-3.40); #Monocytes 0.6 thou/uL (0.11-0.59); #Neutrophils 3.4 thou/uL (1.40-6.50); %Eosinophils 2.6 % (0.0-10.0); %Lymphocytes 26.8 % (21.0-51.0); %Monocytes 9.9 % (0.0-10.0); %Neutrophils 60.7 % (42.0-75.0); Hemoglobin 12.8 g/dL (12.0-16.0); Mean Corpuscular HGB CONC 34.5 g/dL (32.0-36.0); Mean Corpuscular Hemoglobin 31.3 pg (27.0-31.0); Mean Corpuscular Volume 90.7 fL (78.0-98.0); Mean Platelet Volume 6.3 fL (7.4-10.4); Platelet Count 233 thou/uL (130-400); RBC Distribution Width 11.7 % (11.5-14.5); Red Blood Cell (RBC) Count 4.08 mill/uL (4.20-5.40); White Blood Cell (WBC) Count 5.6 thou/uL (4.8-10.8)
[2021-10-06] MEDS ORDERED: Acetaminophen 500 MG TAB ONE (16:37)
[2021-10-06] MEDS ORDERED: methylPREDNISolone Sod Succ/PF 125 MG/2 ML VIAL ONE (16:38)
[2021-10-06] MEDS ORDERED: Ondansetron PF 4 MG/2 ML Vial ONE (16:38)
[2021-10-06 16:57] LABS: Magnesium 2.1 mg/dL (1.6-2.6)
[2021-10-06 16:59] LABS: ALT (SGPT) 23 U/L (8-55); AST (SGOT) 27 U/L (5-34); Albumin 3.9 g/dL (3.4-4.8); Alkaline Phosphatase 59 U/L (40-110); Anion Gap 17 mmol/L (10-20); BUN (Urea Nitrogen) 10 mg/dL (9.8-20.1); Bilirubin, Total 0.3 mg/dL (0.2-1.2); Calc. Creatinine Clearance 0 mL/min (70-130); Calcium 9.1 mg/dL (7.8-10.44); Carbon Dioxide 23 mmol/L (23-31); Chloride 103 mmol/L (98-107); Globulin 2.5 g/dL (2.4-3.5); Glucose 93 mg/dL (83-110); Lipase 26 U/L (8-78); Potassium 4.6 mmol/L (3.5-5.1); Protein, Total 6.4 g/dL (5.8-8.1); Sodium 138 mmol/L (136-145)
[2021-10-06 17:17] LABS: SARS-CoV-2 NAA Rapid Test DETECTED (NotDetected)
[2021-10-06 19:44] LABS: Troponin I 0.013 ng/mL (< 0.028)
== END 2021-10-06 20:14 | disposition home or self-care (01) ==
LOC: ERS 15:22
DX: U07.1 COVID-19 (principal); I10 Essential (primary) hypertension; E78.5 Hyperlipidemia, unspecified; E78.00 Pure hypercholesterolemia, unspecified
CPT/HCPCS: 0240U; 71045; 80053; 83605; 83690; 83735; 83880; 84484 ×2; 85025; 87040; 93005; 94760; 96374; 99285; 36415; J2405; J2930; J7620

== ENCOUNTER 2022-01-23 07:52 | Outpatient (CLI) | payer MEDICARE | END 2022-01-23 07:53 | disposition home or self-care (01) | LOC: TBSIIMAG 07:52 | PROVIDERS: ATTEND Neurological Surgery | DX: M54.50 Low back pain, unspecified (principal); M25.559 Pain in unspecified hip; M47.816 Spondylosis without myelopathy or radiculopathy, lumbar region; M48.061 Spinal stenosis, lumbar region without neurogenic claudication; M51.36 Other intervertebral disc degeneration, lumbar region; M71.38 Other bursal cyst, other site; M16.0 Bilateral primary osteoarthritis of hip; S76.011A Strain of muscle, fascia and tendon of right hip, initial encounter; Z98.890 Other specified postprocedural states | CPT/HCPCS: 72158 ==

== ENCOUNTER 2022-05-10 10:00 | Outpatient (CLI) | payer MEDICARE ==
[2022-05-10 11:11] LABS: Hemoglobin 12.2 g/dL (12.0-15.5); Mean Corpuscular HGB CONC 32.4 g/dL (32.0-36.0); Mean Corpuscular Hemoglobin 29.3 pg (27.0-33.0); Mean Corpuscular Volume 90.6 fl (81.6-98.3); Mean Platelet Volume 9.6 fl (7.4-10.4); Platelet Count 265 10x3/uL (150-450); RBC Distribution Width 13.5 % (11.5-14.5); Red Blood Cell (RBC) Count 4.16 10x6/uL (3.90-5.03); White Blood Cell (WBC) Count 6.6 10x3/uL (3.5-10.5)
[2022-05-10 11:35] LABS: Anion Gap 12 mmol/L (10-20); BUN (Urea Nitrogen) 18 mg/dL (9.8-20.1); Calc. Creatinine Clearance 0 mL/min (70-130); Calcium 9.6 mg/dL (7.8-10.44); Carbon Dioxide 29 mmol/L (23-31); Chloride 105 mmol/L (98-107); Estimated GFR 80; Glucose 102 mg/dL (83-110); Potassium 4.9 mmol/L (3.5-5.1); Sodium 141 mmol/L (136-145)
== END 2022-05-10 10:01 | disposition home or self-care (01) ==
LOC: LABBT 10:00
PROVIDERS: ATTEND Neurological Surgery
DX: Z01.812 Encounter for preprocedural laboratory examination (principal); M48.061 Spinal stenosis, lumbar region without neurogenic claudication; M71.38 Other bursal cyst, other site; Z20.822 Contact with and (suspected) exposure to COVID-19
CPT/HCPCS: 80048; 85027; 87811

== ENCOUNTER 2022-05-10 10:15 | Observation (INO) | payer MEDICARE ==
[2022-05-13 11:45] VITALS: BMI 36.8
[2022-05-15] MEDS ORDERED: SUGAMMADEX SODIUM 200 MG/2 ML VIAL ONE (09:12)
[2022-05-15] MEDS ORDERED: Propofol 500 MG/50 ML VIAL ONE (09:12)
[2022-05-15] MEDS ORDERED: HYDROmorphone 2 MG/ML VIAL ONE (09:12)
[2022-05-15] MEDS ORDERED: Thrombin 5000 UNITS/5 ML VIAL ONE (09:41)
[2022-05-15] MEDS ORDERED: Bupivacaine/Epinephrine 0.25% 30 ML VIAL ONE (09:46)
[2022-05-15] MEDS ORDERED: Dexamethasone 20 MG/5 ML VIAL ONE (10:00)
[2022-05-15] MEDS ORDERED: Glycopyrrolate 0.2 MG/ML 5 ML SYRINGE ONE (10:00)
[2022-05-15] MEDS ORDERED: Lidocaine 1% PF 5 ML VIAL ONE (10:00)
[2022-05-15] MEDS ORDERED: Ondansetron PF 4 MG/2 ML Vial ONE (10:00)
[2022-05-15] MEDS ORDERED: PROPOFOL 200 MG/20 ML VIAL ONE (10:00)
[2022-05-15] MEDS ORDERED: Phenylephrine 10 MG/ML VIAL ONE (10:00)
[2022-05-15] MEDS ORDERED: Esmolol 100 MG/10 ML VIAL ONE (10:00)
[2022-05-15] MEDS ORDERED: Rocuronium Bromide 10 MG/ML (10ML VIAL) ONE (10:00)
[2022-05-15] MEDS ORDERED: Ketorolac Tromethamine 30 MG/ML VIAL ONE (10:00)
[2022-05-15] MEDS ORDERED: Midazolam HCl 2 mg/2 ml Vial ONE (10:19)
[2022-05-15] MEDS ORDERED: Promethazine HCl 25 MG/ML VIAL IVPB PRN (12:42)
[2022-05-15] MEDS ORDERED: HYDROmorphone 2 MG/ML VIAL SLOW IVP PRN (12:42)
[2022-05-15] MEDS ORDERED: Meperidine HCl/PF 25 MG/ML VIAL SLOW IVP PRN (12:42)
[2022-05-15] MEDS ORDERED: HYDROcodone/Acetaminophen 5/325 mg Tablet ONE (15:03)
[2022-05-15] MEDS ORDERED: CEFAZOLIN 2 GM VIAL ONE (15:05)
[2022-05-15] MEDS ORDERED: Sodium Chloride 0.9% 100 ML ONE (15:06)
[2022-05-15] MEDS ORDERED: Acetaminophen 325 MG TAB PO PRN ×2 (17:54→18:15)
[2022-05-15] MEDS ORDERED: Furosemide 20 MG TAB PO PRN (17:56)
[2022-05-15] MEDS ORDERED: tiZANidine HCl 4 MG TAB PO PRN (18:02)
[2022-05-15] MEDS ORDERED: Ondansetron PF 4 MG/2 ML Vial IM PRN (18:12)
[2022-05-15] MEDS ORDERED: Morphine 2 MG/ML VIAL SLOW IVP PRN (18:15)
[2022-05-15] MEDS ORDERED: diphenhydrAMINE 50 MG/ML VIAL IVP PRN (18:15)
[2022-05-15] MEDS ORDERED: Morphine 4 MG/ML VIAL SLOW IVP PRN (18:15)
[2022-05-15] MEDS ORDERED: diphenhydrAMINE 25 MG CAP PO PRN (18:15)
[2022-05-15] MEDS ORDERED: HYDROcodone/Acetaminophen 10/325 mg Tablet PO PRN (18:15)
[2022-05-15] MEDS ORDERED: Bisacodyl 10 MG SUPP PR PRN (18:15)
[2022-05-15] MEDS: Sodium Chloride 0.9% 1,000 ML IV SCH (18:43)
[2022-05-15] MEDS ORDERED: Rosuvastatin 20 MG TAB PO SCH (21:00)
[2022-05-15] MEDS ORDERED: PRAMIPEXOLE 1.5 MG PO SCH (21:00)
[2022-05-15] MEDS ORDERED: Zolpidem Tartrate 5 MG TAB PO SCH (21:00)
[2022-05-15] MEDS ORDERED: FLUoxetine HCl 20 MG CAP PO SCH (21:00)
[2022-05-15] MEDS: Flecainide 50 MG TAB PO SCH (21:40)
[2022-05-15] MEDS: HYDROcodone/Acetaminophen 10/325 mg Tablet PO PRN (21:41)
[2022-05-16] MEDS ORDERED: CEFAZOLIN 2 GM in Sodium Chloride 0.9% 100 ML IVPB SCH ×2 (02:30→18:00)
[2022-05-16 08:10] VITALS: BP 110/58; TEMP 97.9
[2022-05-16] MEDS: Flecainide 50 MG TAB PO SCH (08:34)
[2022-05-16] MEDS: Sodium Chloride 0.9% 1,000 ML IV SCH (08:35)
[2022-05-16] MEDS: HYDROcodone/Acetaminophen 10/325 mg Tablet PO PRN (08:35)
[2022-05-17] MEDS ORDERED: Apixaban 5 MG TAB PO SCH (21:00)
[2022-05-18] MEDS ORDERED: Aspirin 81 mg Enteric Coated Tablet PO SCH (09:00)
== END 2022-05-16 11:30 | disposition home or self-care (01) ==
LOC: INTOOBSV 05-15 07:54 → SURG A 05-15 07:54 → SURG B 05-15 17:35
PROVIDERS: ADMIT Neurological Surgery; ATTEND Neurological Surgery
PROC: 0QB00ZZ Excision of Lumbar Vertebra, Open Approach (ICD-10-PCS; principal; 2022-05-15)
PROC: 0QJY0ZZ Inspection of Lower Bone, Open Approach (ICD-10-PCS; 2022-05-15)
PROC: 0SG1071 Fusion of 2 or more Lumbar Vertebral Joints with Autologous Tissue Substitute, Posterior Approach, Posterior Column, Open Approach (ICD-10-PCS; 2022-05-15)
DX: M48.061 Spinal stenosis, lumbar region without neurogenic claudication (principal); M71.38 Other bursal cyst, other site; M54.16 Radiculopathy, lumbar region; M19.90 Unspecified osteoarthritis, unspecified site; E78.00 Pure hypercholesterolemia, unspecified; G89.4 Chronic pain syndrome; K21.9 Gastro-esophageal reflux disease without esophagitis; Z79.01 Long term (current) use of anticoagulants; Z79.82 Long term (current) use of aspirin; Z79.899 Other long term (current) drug therapy; Z88.2 Allergy status to sulfonamides; Z88.8 Allergy status to other drugs, medicaments and biological substances; Z91.048 Other nonmedicinal substance allergy status
CPT/HCPCS: 20930; 20936; 22612; 22842; 63267; C1713 ×4; C1768; G0378 ×2; 76000; J0690; J1100; J1170; J1885; J2250; J2370; J2405; J2704; J3490

== ENCOUNTER 2022-06-28 12:20 | Outpatient (CLI) | payer MEDICARE | END 2022-06-28 12:21 | disposition home or self-care (01) | LOC: BICMAMMO 12:20 | PROVIDERS: ATTEND Specialist | DX: Z12.31 Encounter for screening mammogram for malignant neoplasm of breast (principal); Z98.82 Breast implant status | CPT/HCPCS: 77063; 77067 ==

== ENCOUNTER 2023-02-21 09:34 | Outpatient (CLI) | payer MEDICARE | END 2023-02-21 09:35 | disposition home or self-care (01) | LOC: BICMAMMO 09:34 | PROVIDERS: ATTEND Physician Assistant | DX: Z13.820 Encounter for screening for osteoporosis (principal); M85.851 Other specified disorders of bone density and structure, right thigh; M85.852 Other specified disorders of bone density and structure, left thigh; Z98.1 Arthrodesis status | CPT/HCPCS: 77080 ==

== ENCOUNTER 2023-06-04 12:34 | Outpatient (CLI) | payer MEDICARE | END 2023-06-04 12:35 | disposition home or self-care (01) | LOC: CT 12:34 | PROVIDERS: ATTEND Orthopaedic Surgery | DX: M47.814 Spondylosis without myelopathy or radiculopathy, thoracic region (principal); M41.84 Other forms of scoliosis, thoracic region; Z98.1 Arthrodesis status | CPT/HCPCS: 72128 ==

== ENCOUNTER 2023-08-20 15:22 | Outpatient (CLI) | payer MEDICARE | END 2023-08-20 15:23 | disposition home or self-care (01) | LOC: ULT 15:22 | PROVIDERS: ATTEND Plastic Surgery Surgery of the Hand | DX: I82.403 Acute embolism and thrombosis of unspecified deep veins of lower extremity, bilateral (principal) | CPT/HCPCS: 93970 ==

== ENCOUNTER 2023-11-20 14:16 | Outpatient (CLI) | payer MEDICARE | END 2023-11-20 14:17 | disposition home or self-care (01) | LOC: RAD 14:16 | PROVIDERS: ATTEND Physician Assistant | DX: Z47.89 Encounter for other orthopedic aftercare (principal); Z98.1 Arthrodesis status | CPT/HCPCS: 72081 ==

== ENCOUNTER 2023-12-10 08:29 | Outpatient (CLI) | payer MEDICARE | END 2023-12-10 08:30 | disposition home or self-care (01) | LOC: CT 08:29 | PROVIDERS: ATTEND Physician Assistant | DX: M79.18 Myalgia, other site (principal); R10.31 Right lower quadrant pain; S32.030D Wedge compression fracture of third lumbar vertebra, subsequent encounter for fracture with routine healing; Z98.1 Arthrodesis status; Z98.890 Other specified postprocedural states | CPT/HCPCS: 72131; 72193; 82565 ==

== ENCOUNTER 2025-05-25 15:38 | Outpatient (CLI) | payer MEDICARE ==
[2025-05-25 17:30] LABS: #Basophils Less than 0.03 10x3/uL (0.0-0.2); #Eosinophils 0.31 10x3/uL (0.0-0.7); #Monocytes 0.52 10x3/uL (0.11-0.59); #Neutrophils 5.09 10x3/uL (1.40-6.50); %Basophils 0.3 % (0.0-1.0); %Eosinophils 4.3 % (0.0-10.0); %Lymphocytes 16.9 % (21.0-51.0); %Monocytes 7.2 % (0.0-10.0); %Neutrophils 70.7 % (42.0-75.0); Hematocrit 30.2 % (36.0-47.0); Hemoglobin 9.5 g/dL (12.0-16.0); Mean Corpuscular Hemoglobin 28.5 pg (27.0-31.0); Mean Corpuscular Volume 90.7 fL (78.0-98.0); Platelet Count 208 10x3/uL (130-400); Red Blood Cell (RBC) Count 3.33 mill/uL (4.20-5.40); White Blood Cell (WBC) Count 7.20 10x3/uL (4.8-10.8)
[2025-05-25 17:47] LABS: ALT (SGPT) 16 U/L (Less than 34); AST (SGOT) 28 U/L (11-34); Albumin 3.7 g/dL (3.1-4.5); Alkaline Phosphatase 77 U/L (40-110); Anion Gap 9 mmol/L (10-20); BUN (Urea Nitrogen) 46 mg/dL (9.8-20.1); Bilirubin, Total 0.5 mg/dL (0.3-1.2); Calc. Creatinine Clearance 0 mL/min (70-130); Calcium 8.8 mg/dL (7.8-10.44); Carbon Dioxide 25 mmol/L (23-31); Chloride 107 mmol/L (98-107); Globulin 3.0 g/dL (2.4-3.5); Glucose 94 mg/dL (83-110); Potassium 4.4 mmol/L (3.5-5.1); Sodium 137 mmol/L (136-145)
== END 2025-05-25 15:39 | disposition home or self-care (01) ==
LOC: LABBT 15:38
PROVIDERS: ATTEND Orthopaedic Surgery
DX: Z01.818 Encounter for other preprocedural examination (principal); S52.021A Displaced fracture of olecranon process without intraarticular extension of right ulna, initial encounter for closed fracture
CPT/HCPCS: 80053; 85025; 93005; 93010

== ENCOUNTER 2025-05-30 15:32 | Outpatient (CLI) | payer MEDICARE | END 2025-05-30 15:33 | disposition home or self-care (01) | LOC: RAD 15:32 | PROVIDERS: ATTEND Orthopaedic Surgery | DX: M43.20 Fusion of spine, site unspecified (principal) | CPT/HCPCS: 72081 ==

== ENCOUNTER 2025-08-10 16:50 | Inpatient (IN) | payer MEDICARE ==
[~2025-08-10 16:50] MED LIST changes: +Iopamidol-370 76% 500 ML MDV (1 ML CHARGE) ONE; -Magnevist 469MG/ML 20 ML VIAL ONE
[2025-08-10 19:15] LABS: #Basophils Less than 0.03 10x3/uL (0.0-0.2); #Eosinophils 0.09 10x3/uL (0.0-0.7); #Monocytes 0.59 10x3/uL (0.11-0.59); #Neutrophils 9.14 10x3/uL (1.40-6.50); %Basophils 0.2 % (0.0-1.0); %Eosinophils 0.9 % (0.0-10.0); %Lymphocytes 5.3 % (21.0-51.0); %Monocytes 5.7 % (0.0-10.0); %Neutrophils 87.5 % (42.0-75.0); Hematocrit 34.6 % (36.0-47.0); Hemoglobin 11.1 g/dL (12.0-16.0); Mean Corpuscular Hemoglobin 28.5 pg (27.0-31.0); Mean Corpuscular Volume 88.7 fL (78.0-98.0); Platelet Count 222 10x3/uL (130-400); Red Blood Cell (RBC) Count 3.90 mill/uL (4.20-5.40); White Blood Cell (WBC) Count 10.43 10x3/uL (4.8-10.8)
[2025-08-10 19:27] LABS: PTT 33.4 sec (22.9-36.1)
[2025-08-10] MEDS ORDERED: Pantoprazole 40 MG VIAL ONE (19:31)
[2025-08-10] MEDS ORDERED: Ondansetron PF 4 MG/2 ML Vial ONE (19:42)
[2025-08-10] MEDS ORDERED: diphenhydrAMINE 50 MG/ML VIAL ONE (19:46)
[2025-08-10 19:47] LABS: INR-International Normal Ratio 1.3; Prothrombin Time 16.0 sec (12.0-14.7)
[2025-08-10] MEDS ORDERED: Lactulose 20 GM (30 mL) UDCUP ONE (21:46)
[2025-08-10 23:27] LABS: ALT (SGPT) 20 U/L (Less than 34); AST (SGOT) 27 U/L (11-34); Albumin 4.2 g/dL (3.1-4.5); Alkaline Phosphatase 73 U/L (40-110); Anion Gap 14 mmol/L (10-20); BUN (Urea Nitrogen) 17 mg/dL (9.8-20.1); Bilirubin, Total 0.5 mg/dL (0.3-1.2); Calc. Creatinine Clearance 0 mL/min (70-130); Calcium 9.1 mg/dL (7.8-10.44); Carbon Dioxide 25 mmol/L (23-31); Chloride 105 mmol/L (98-107); Globulin 2.8 g/dL (2.4-3.5); Glucose 114 mg/dL (83-110); Lipase 48 U/L (8-78); Potassium 3.9 mmol/L (3.5-5.1); Sodium 140 mmol/L (136-145)
[2025-08-10] MEDS ORDERED: Calcium Carbonate 500 MG ChewTAB PO PRN (23:28)
[2025-08-10] MEDS ORDERED: Guaifenesin DM 100-10/5 ML UDCUP PO PRN (23:28)
[2025-08-11 02:40] VITALS: BMI 40.1
[2025-08-11 03:06] LABS: Influenza A by NAA Not Detected (NotDetected); Influenza B by NAA Not Detected (NotDetected); SARS-CoV-2 NAA Rapid Test Not Detected (NotDetected)
[2025-08-11 07:57] LABS: Anion Gap 15 mmol/L (10-20); BUN (Urea Nitrogen) 14 mg/dL (9.8-20.1); Calc. Creatinine Clearance 99 mL/min (70-130); Calcium 8.9 mg/dL (7.8-10.44); Carbon Dioxide 18 mmol/L (23-31); Chloride 109 mmol/L (98-107); Glucose 120 mg/dL (83-110); Potassium 4.6 mmol/L (3.5-5.1); Sodium 137 mmol/L (136-145)
[2025-08-11 07:58] LABS: CRP, High Sensitivity at Bryan 9.59 mg/dL (< or = 0.5)
[2025-08-11] MEDS: Pantoprazole 40 MG VIAL IVP SCH (08:17)
[2025-08-11] MEDS ORDERED: Pantoprazole 40 MG VIAL IVP SCH (09:00)
[2025-08-11 09:37] LABS: #Basophils Less than 0.03 10x3/uL (0.0-0.2); #Eosinophils Less than 0.03 10x3/uL (0.0-0.7); #Monocytes 0.72 10x3/uL (0.11-0.59); #Neutrophils 13.44 10x3/uL (1.40-6.50); %Basophils 0.1 % (0.0-1.0); %Eosinophils 0.1 % (0.0-10.0); %Lymphocytes 5.6 % (21.0-51.0); %Monocytes 4.7 % (0.0-10.0); %Neutrophils 88.6 % (42.0-75.0); Hematocrit 37.9 % (36.0-47.0); Hemoglobin 12.2 g/dL (12.0-16.0); Mean Corpuscular Hemoglobin 29.0 pg (27.0-31.0); Mean Corpuscular Volume 90.2 fL (78.0-98.0); Platelet Adequacy Comment Platelets Normal; Platelet Count 149 10x3/uL (130-400); Red Blood Cell (RBC) Count 4.20 mill/uL (4.20-5.40); White Blood Cell (WBC) Count 15.17 10x3/uL (4.8-10.8)
[2025-08-11] MEDS: diphenhydrAMINE 50 MG/ML VIAL IVP PRN (10:51)
[2025-08-11] MEDS: Senokot S 8.6-50 MG TAB PO SCH (20:36)
[2025-08-11] MEDS: Metoprolol Succinate XL 25 MG ER.TAB PO SCH (20:36)
[2025-08-12] MEDS: Preparation H Ointment 28 GM TUBE TOP PRN (00:36)
[2025-08-12] MEDS: Melatonin 3 MG TAB PO PRN (02:23)
[2025-08-12] MEDS: Ondansetron PF 4 MG/2 ML Vial IVP PRN (14:22)
[2025-08-12] MEDS: Acetaminophen 325 MG TAB PO PRN (14:28)
[2025-08-12 14:43] VITALS: BP 136/94; TEMP 98.9
== END 2025-08-12 14:49 | disposition home or self-care (01) | DRG 379 ==
LOC: ERS 16:50 → T4-A 22:35
PROVIDERS: ADMIT Student in an Organized Health Care Education/Training Program; ATTEND Student in an Organized Health Care Education/Training Program
DX: K92.2 Gastrointestinal hemorrhage, unspecified (principal); K52.89 Other specified noninfective gastroenteritis and colitis; K64.4 Residual hemorrhoidal skin tags; K59.03 Drug induced constipation; T44.4X5A Adverse effect of predominantly alpha-adrenoreceptor agonists, initial encounter; I10 Essential (primary) hypertension; I48.0 Paroxysmal atrial fibrillation; G25.81 Restless legs syndrome; G89.29 Other chronic pain; M54.9 Dorsalgia, unspecified; D64.9 Anemia, unspecified; E78.5 Hyperlipidemia, unspecified; K64.8 Other hemorrhoids
CPT/HCPCS: 36415; 74177; 80048; 80053; 82274; 83605; 83690; 85025; 85610; 85730; 86141; 86850; 86900; 86901; 87040; 87636; 96365; 96375; J1200; J2272; J2405; J2470; J2543; J2919; J7120; Q9967